=== PATIENT | male | born 1935 | race Caucasian/White ===

== ENCOUNTER → 2019-03-11 | Outpatient (CLI) | payer MEDICARE ==
[~2019-03-11] MED LIST: DOBUTamine DRIP for NUC MED 500 MG in DEXTROSE/WATER 1 250ML.BAG IV ONE; METOPROLOL TARTRATE 5 MG/5 ML VIAL IVP ONE
--- NOTE | 2019-03-12 12:24 | ECHOS ---
STRESS ECHOCARDIOGRAM DOBUTAMINE STRESS ECHOCARDIOGRAM DATE OF SERVICE: 03/11/2019 INDICATIONS: Chest pain. MEDICATIONS: Metoprolol, atorvastatin, warfarin. BASELINE HEART RATE: 98 BASELINE BLOOD PRESSURE: 146/88 MAXIMUM HEART RATE: 137 MAXIMUM BLOOD PRESSURE: 178/62 85% MPHR: 118 100% MPHR: 139 METS: MAXIMUM STAGE REACHED: TOTAL EXERCISE TIME: CLINICAL INFORMATION: STRESS DATA: Heart rate 98, pressure is 146/88 mmHg. Baseline EKG showed atrial fibrillation. Dobutamine infusion at a dose of 10 mcg/kg per minute, was initiated and increased to 20 mcg/kg per minute per protocol. Max heart rate was 137 which is about 98% of maximum predicted heart rate. Maximum pressure was 178/62 mmHg. Clinically the patient did not have any symptoms. The EKG did not show any significant ST or T-wave abnormalities concerning for ischemia or meeting criteria for ischemia. ECHOCARDIOGRAM IMAGES: On echocardiogram images from parasternal long axis view, parasternal short axis view, apical 4 chamber and apical 2 chamber views were obtained as the baseline images, at low dose dobutamine infusion, as well as on recovery and the echocardiogram images showed overall good augmentation in the left ventricular systolic function without any evidence of wall motion abnormalities concerning for ischemia. CONCLUSION: 1. Normal EKG in response to dobutamine. 2. Normal echocardiogram in response to dobutamine. 3. Essentially normal dobutamine stress echocardiogram for the patient. MMODL / IJN: [id number] /
== END | disposition home or self-care (01) ==
LOC: RADNMMAIN 09:00
PROVIDERS: ATTEND Internal Medicine
DX: R06.09 Other forms of dyspnea (principal)
CPT/HCPCS: 93351; J1250

== ENCOUNTER → 2020-05-05 | Outpatient (CLI) | payer MEDICARE ==
--- NOTE | 2020-05-05 18:53 | ECHOF ---
Referral Reason:I50.32 MEASUREMENTS -------- HEIGHT: 177.8 cm WEIGHT: 117.9 kg BP: RVIDd: 3.8 cm (< 3.3) IVSd: 1.4 cm (0.6 - 1.1) LVIDd: 5.2 cm (3.9 - 5.3) LVPWd: 1.3 cm (0.6 - 1.1) IVSs: 2.0 cm LVIDs: 2.9 cm LVPWs: 2.2 cm LAESV Index (A-L): 65.44 ml/m Ao Diam: 3.4 cm (2.0 - 3.7) AV Cusp: 2.4 cm (1.5 - 2.6) LA Diam: 4.8 cm (2.7 - 3.8) MV EXCURSION: 22.646 mm (> 18.000) MV EF SLOPE: 153 mm/s (70 - 150) EPSS: 1.1 cm AR PHT: 335 ms RAP: 5.00 mmHg RVSP: 40.56 mmHg FINDINGS -------- Atrial fibrillation. This was a technically good study. The left ventricular size is normal. There is moderate concentric left ventricular hypertrophy. O verall left ventricular systolic function is normal with, an EF between 55 - 60 %. The right ventricle is mild to moderately enlarged. LA is severely dilated >40 ml/m2 The right atrial size is normal. Interatrial and interventricular septum intact. Aortic valve is trileaflet and is mildly thickened. There is mild aortic regurgitation. The mitral valve is normal. The mitral valve leaflets are mildly thickened. Gxml-dv-thhijekj mitr al regurgitation is present. Mild tricuspid regurgitation present. There is mild pulmonary hypertension. The right ventricular systolic pressure, as measured by Doppler, is 40.56mmHg. There is no pulmonic regurgitation present. The aortic root size is normal. Normal inferior vena cava with normal inspiratory collapse consistent with estimated right atrial pre ssure of 5 mmHg. There is no pericardial effusion. CONCLUSIONS -------- 1. The left ventricular size is normal. 2. There is moderate concentric left ventricular hypertrophy. 3. The right ventricle is mild to moderately enlarged. 4. LA is severely dilated >40 ml/m2 5. Aortic valve is trileaflet and is mildly thickened. 6. There is mild aortic regurgitation. 7. The mitral valve leaflets are mildly thickened. 8. Rjjo-qa-euztdrbp mitral regurgitation is present. 9. There is mild pulmonary hypertension. 10. The right ventricular systolic pressure, as measured by Doppler, is 40.56mmHg. 11. There is no pericardial effusion. SUPER[employer]ENDENT [employer]: Sonya Drew RDCS
== END | disposition home or self-care (01) ==
LOC: RADECHMAIN 13:59
PROVIDERS: ATTEND Internal Medicine
DX: I27.20 Pulmonary hypertension, unspecified (principal); I34.0 Nonrheumatic mitral (valve) insufficiency; I50.32 Chronic diastolic (congestive) heart failure
CPT/HCPCS: 93306

== ENCOUNTER → 2020-07-13 | Outpatient (CLI) | payer MEDICARE ==
--- NOTE | 2020-07-13 14:38 | CT ---
EXAMINATION TYPE: CT chest w con DATE OF EXAM: 07/13/2020 COMPARISON: Chest x-ray 9 days ago HISTORY: Dyspnea on exertion. CT DLP: 517.8 mGycm. Automated Exposure Control for Dose Reduction was Utilized. TECHNIQUE: CT scan of the thorax is performed following with IV Contrast, patient injected with 80 m L of Isovue M300. FINDINGS: LUNGS: Groundglass opacity with interlobular septal thickening right upper lobe extends inferiorly. A dditional areas of groundglass opacity and reticulation in the superior aspect right lower lobe are p resent. Left lung is clear. There is no pleural effusion or pneumothorax seen. The tracheobronchia l tree is patent. MEDIASTINUM: There are some prominent but predominantly subcentimeter thoracic lymph nodes. A few sli ghtly enlarged lymph nodes for reference right peritracheal lymph node measures 1.2 x 1.1 cm axial im age 19. Several also slightly enlarged lymph nodes are present.. No pericardial effusion is seen. Ca rdiomegaly is redemonstrated. Moderate to severe three-vessel coronary artery calcification is seen. Moderate to severe biatrial dilatation is present OTHER: Hiibt-vo-nzilondv size hiatal hernia. Simple appearing 1.5 cm exophytic cyst posteriorly upper pole right kidney. Few scattered splenules. Multilevel spurring in the spine. IMPRESSION: Acute on chronic multifocal right lung infectious process felt present. Correlate clinica lly. Correlation with old outside CT or x-ray would be beneficial. Nonspecific slightly enlarged thor acic lymph nodes may warrant follow-up.
== END | disposition home or self-care (01) ==
LOC: RADCTMAIN 13:09
PROVIDERS: ATTEND Internal Medicine Critical Care Medicine
DX: J98.4 Other disorders of lung (principal); R59.0 Localized enlarged lymph nodes
CPT/HCPCS: 82565; 84520; 71260; 36415; Q9967

== ENCOUNTER → 2021-01-24 | Outpatient (CLI) | payer MEDICARE ==
--- NOTE | 2021-01-24 15:44 | CT ---
EXAMINATION TYPE: CT chest w con DATE OF EXAM: 01/24/2021 COMPARISON: 07/13/2020 HISTORY: Dyspnea. CT DLP: 545.2 mGycm Automated exposure control for dose reduction was used. CONTRAST: CT scan of the chest is performed with IV Contrast, patient injected with 100ml mL of Isovue 300. FINDINGS: LUNGS: The lungs are grossly clear, there is no concerning parenchymal mass or nodule identified. T here is no pleural effusion or pneumothorax seen. The tracheobronchial tree is patent. MEDIASTINUM: There are no greater than 1 cm hilar or mediastinal lymph nodes. No pericardial effusi on is seen. Thoracic aorta is of normal caliber. The heart is enlarged. Small hiatal hernia noted. UPPER ABDOMEN: No significant abnormality appreciated. OTHER: No additional significant abnormality is seen. IMPRESSION: No significant abnormality to account for the patient's symptoms.
== END | disposition home or self-care (01) ==
LOC: RADCTMAIN 15:12
PROVIDERS: ATTEND Internal Medicine Critical Care Medicine
DX: R06.00 Dyspnea, unspecified (principal)
CPT/HCPCS: 71260; Q9967

== ENCOUNTER → 2021-12-07 | Outpatient (CLI) | payer MEDICARE ==
--- NOTE | 2021-12-07 13:20 | CT ---
EXAMINATION TYPE: CT angio chest DATE OF EXAM: 12/07/2021 COMPARISON: 01/24/2021 HISTORY: 86-year-old male Elevated d-dimer, Shortness of breath TECHNIQUE: Contiguous axial scanning of the chest performed with IV Contrast, patient injected with 1 00, wasted 15 mL of Isovue 370. Coronal/sagittal MIP reconstructions performed. CT DLP: 635.2 mGycm Automated exposure control for dose reduction was used. FINDINGS: The heart is mildly enlarged without pericardial effusion. Scattered LAD coronary artery calcificatio ns are present. No flattening of the interventricular septum or reflux of contrast into the hepatic v eins. There is mild enlargement of the right side of the heart. Mild aneurysm aortic root at 4.2 cm an ectatic ascending aorta at 3.9 cm. Ectatic upper descending th oracic aorta 3.5 cm. Mild arthroscopic arch calcifications. Lower descending thoracic aorta ectatic a t 2.9 cm. A couple mildly enlarged mediastinal lymph nodes particularly in the lower paratracheal region measur ing up to 1.3 cm, unchanged. Large caliber to the main right and left pulmonary arteries measuring up to 3.2 cm suggesting underly ing pulmonary hypertension. Satisfactory opacification of the pulmonary artery system without evidenc e for pulmonary embolus. Subpleural reticular changes especially in the mid and lower lungs. Some associated mild bibasilar br onchiolectasis. A couple scattered benign calcified granulomas are noted. Additional mild emphysemato us change. No honeycombing or dominant groundglass changes. Small to moderate-sized hiatal hernia. A couple hilar splenules. Stable exophytic hypodense lesion me asuring 1.7 cm posterior right kidney suggesting a cyst. Bones: [facility] throughout the mid and lower thoracic spine. IMPRESSION: 1. NO EVIDENCE FOR PULMONARY EMBOLUS. 2. HOWEVER, THERE IS MILD CARDIOMEGALY, LAD CORONARY ARTERY CALCIFICATIONS, AND PULMONARY ARTERY HYPE RTENSION. CORRELATE FOR ELEVATED LEFT HEART PRESSURES. 3. 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 SOME ASSOCIATED MILD BIBAS ILAR ATELECTASIS. 4. 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 5. SMALL TO MODERATE SIZED HIATAL HERNIA. 6. DISH MID TO LOWER THORACIC SPINE.
== END | disposition home or self-care (01) ==
LOC: RADCTMAIN 09:23
PROVIDERS: ATTEND Internal Medicine
DX: I25.10 Atherosclerotic heart disease of native coronary artery without angina pectoris (principal); I27.21 Secondary pulmonary arterial hypertension; J43.9 Emphysema, unspecified; J84.10 Pulmonary fibrosis, unspecified; J98.11 Atelectasis; K44.9 Diaphragmatic hernia without obstruction or gangrene; I71.2 Thoracic aortic aneurysm, without rupture; M48.14 Ankylosing hyperostosis [Forestier], thoracic region
CPT/HCPCS: 82565; 84520; 71275; 36415; Q9967

== ENCOUNTER → 2021-12-14 | Outpatient (CLI) | payer MEDICARE ==
--- NOTE | 2021-12-14 11:03 | US ---
EXAMINATION TYPE: US carotid duplex BILAT DATE OF EXAM: 12/14/2021 COMPARISON: NONE CLINICAL HISTORY: 86-year-old male I65.23 CAROTID STENOSIS. Stenosis per order. Prior smoker per chago ent. TECHNIQUE: Carotid duplex ultrasound examination. Indirect upper criteria was utilized. FINDINGS: EXAM MEASUREMENTS: RIGHT: Peak Systolic Velocity (PSV) cm/sec ----- Right CCA: 66.2 ----- Right ICA: 55.9 ----- Right ECA: 55.9 ICA/CCA ratio: 0.84 RIGHT: End Diastole cm/sec ----- Right CCA: 10.3 ----- Right ICA: 15.4 ----- Right ECA: 0.0 LEFT: Peak Systolic Velocity (PSV) cm/sec ----- Left CCA: 67.7 ----- Left ICA: 63.7 ----- Left ECA: 65.9 ICA/CCA ratio: 0.94 LEFT: End Diastole cm/sec ----- Left CCA: 11.3 ----- Left ICA: 14.2 ----- Left ECA: 7.6 VERTEBRALS (direction of flow): Right Vertebral: Antegrade Left Vertebral: Antegrade Rhythm: Arrhythmia Electrical Equipment Technician: No elevated velocities at this time. Minimal plaque seen within bilateral bulbs. IMPRESSION: No hemodynamically significant internal carotid artery stenosis on either side. Criteria for Assigning % of Stenosis / Diameter reduction (Estimation based on the indirect measurements of the internal carotid artery velocities (ICA PSV). 1. Normal (no stenosis)=ICA PSV < 125 cm/s: ratio < 2.0: ICA EDV<40 cm/s. 2. Less than 50% stenosis=ICA PSV < 125 cm/s: ratio < 2.0: ICA EDV<40 cm/s. 3. 50 to 69% stenosis=ICA PSV of 125 to 230 cm/s: ration 2.0 ? 4.0: ICA EDV 40-100 cm/s. 4. Greater than 70% stenosis to near occlusion= ICA PSV > 230 cm/s: ratio > 4.0: ICA EDV > 100 cm/s. 5. Near occlusion= ICA PSV velocities may be low or undetectable: variable ratio and ICA EDV. 6. Total occlusion=unable to detect flow.
--- NOTE | 2021-12-15 14:43 | CA ---
Transthoracic Echo Report Name: Shahid Gee Age: 86 Gender: M : 1935 Exam Date: 12/14/2021 08:37 Exam Location: [place] [facility] Ht (in): 72 Wt (lb): 250 Ordering Physician: Parisa Rincon MD Attending/Referring Phys: Parisa Rincon MD Supervisor [employer] Kate Arnold RDCS Procedure CPT: Indications: I20.8 effort anfina Cardiac Hx: Technical Quality: Fair Contrast 1: Total Dose (mL): Contrast 2: Total Dose (mL): MEASUREMENTS (Male / Female) Normal Values 2D ECHO LV Diastolic Diameter PLAX 5.4 cm 4.2 - 5.9 / 3.9 - 5.3 cm LV Systolic Diameter PLAX 4.0 cm IVS Diastolic Thickness 1.3 cm 0.6 - 1.0 / 0.6 - 0.9 cm LVPW Diastolic Thickness 1.3 cm 0.6 - 1.0 / 0.6 - 0.9 cm LV Relative Wall Thickness 0.5 RV Internal Dim ED PLAX 5.4 cm LA Volume 201.1 cm??? 18 - 58 / 22 - 52 cm??? M-MODE LV Diastolic Diameter MM 5.9 cm 4.2 - 5.9 / 3.9 - 5.3 cm LV Systolic Diameter MM 4.4 cm LV Cardiac Index MM Teich 2159.2 cm???/min???m??? IVS Diastolic Thickness MM 1.5 cm 0.6 - 1.0 / 0.6 - 0.9 cm LVPW Diastolic Thickness MM 1.4 cm 0.6 - 1.0 / 0.6 - 0.9 cm LV Relative Wall Thickness MM 0.5 0.24 - 0.42 / 0.22 - 0.42 LV Mass Index MM 160.5 g/m??? 49 - 115 / 43 - 95 g/m??? Aortic Root Diameter MM 3.9 cm LA Systolic Diameter MM 4.0 cm LA Ao Ratio MM 1.0 AV Cusp Separation MM 2.3 cm DOPPLER AV Peak Velocity 82.1 cm/s AV Peak Gradient 2.7 mmHg LVOT Peak Velocity 74.9 cm/s LVOT Peak Gradient 2.2 mmHg TR Peak Velocity 270.9 cm/s TR Peak Gradient 29.3 mmHg Right Ventricular Systolic Press 34.3 mmHg FINDINGS Left Ventricle Mildly increased left ventricular wall thickness. Mild left ventricular dilatation. Reduced global left ventricular systolic function. Left ventricular ejection fraction is estimated at 45-50%. Abnormal left ventricular diastolic filling pattern. Right Ventricle Moderate right ventricular dilatation. Right Atrium Moderate right atrial dilatation. Left Atrium Severely increased left atrial volume. Severely increased left atrial area. No evidence for an atrial septal defect. Mitral Valve Mitral annular calcification. Mitral valve thickened. Bokmyrkk-sf-lucvsy mitral regurgitation. Aortic Valve Trileaflet aortic valve. Trileaflet aortic valve. Aortic valve sclerosis. No aortic stenosis. Tricuspid Valve Structurally normal tricuspid valve. Mild tricuspid regurgitation. Pulmonic Valve Structurally normal pulmonic valve. Trace pulmonic regurgitation. Pericardium No pericardial effusion. Aorta Aortic root and proximal ascending aorta not well visualized. CONCLUSIONS Mild LV systolic dysfunction. Inferoseptal hypokinesis. Right ventricular diameter dictation. Biatrial enlargement. Moderate to severe mitral regurgitation. Previewed by: Dr. Ricky Jimenez MD (Electronically Signed) Final Date: 15 December 2021 14:42
== END | disposition home or self-care (01) ==
LOC: RADECHMAIN 08:21
PROVIDERS: ATTEND Internal Medicine
DX: I65.23 Occlusion and stenosis of bilateral carotid arteries (principal); I20.8 Other forms of angina pectoris
CPT/HCPCS: 93306; 93880

== ENCOUNTER → 2021-12-26 | Outpatient (CLI) | payer MEDICARE ==
[~2021-12-26] MED LIST changes: -DOBUTamine DRIP for NUC MED 500 MG in DEXTROSE/WATER 1 250ML.BAG IV ONE; -METOPROLOL TARTRATE 5 MG/5 ML VIAL IVP ONE; +REGADENOSON 0.4 MG/5 ML SYRINGE IV ONE
--- NOTE | 2021-12-26 12:21 | CA ---
Lexiscan Nuclear Stress Test Report Name: Shahid Gee Exam Date: 12/26/2021 09:57 Exam Location: [place] [facility] Ht (in): 72 Wt (lb): 250 BSA: 2.34 Ordering Phys: Parisa Rincon MD Referring Phys: SONIA, Technologist: Marcelino Gusman Age: 86 Gender: M : 1935 Procedure CPT: Indications: I20.8 effort angina ICD-10 Codes: Patient History: Chest pain on exertion Medications: Metorprolol, atorvastatin, warfarin, furosamide, lisinopril, spironolatone. Meds past 24 hrs: Pretest Chest Pain: STRESS TEST Lexiscan Protocol Exercise Duration (min:sec): 01:[address] Depressions (mm): Angina Score: Fields Score: Resting HR (bpm): 82 Peak HR (bpm): 92 Resting BP (mmHg): 136 / 82 Peak BP (mmHg): 128 / 73 MPHR: 136 Target HR: 116 % MPHR: 68 METS: 1.0 Total Dose: Peak Dose: Atropine: Double Product: 18536 BP Response: Stress Termination: INFUSION COMPLETE Stress Symptoms: NO SYMPTOMS Stress Summary: ECG ANALYSIS Resting ECG: Atrial fibrillation with nonspecific ST-T wave changes Stress ECG: Normal response to Lexiscan CONCLUSIONS Negative stress test by EKG criteria Cardiolite portion of the stress test will be reported separately Dr. Ricky Jimenez MD (Electronically Signed) Final Date: 26 December 2021 12:20
--- NOTE | 2021-12-26 22:45 | NM ---
EXAMINATION TYPE: NM stress lexiscan cardiolite DATE OF EXAM: 12/26/2021 COMPARISON: CT chest from 04/18/2022 HISTORY: Palpitations and angina with difficulty in breathing. Family history of heart attack. Person al history of tobacco use. TECHNIQUE: After the intravenous administration of 9.8 mCi Tc 99m Sestamibi - Cardiolite resting SPE CT images acquired 50 minutes post injection. The patient received 0.4mg Lexiscan, 25.9 mCi Tc 99m Sestamibi - Stress images obtained [address] injection FINDINGS: Review of stress and rest SPECT images demonstrates no distinct perfusion abnormality. Gated analysi s shows normal wall motion with an estimated left ventricular ejection fraction of 57 %. IMPRESSION: No scintigraphic evidence for reversible ischemia.
== END | disposition home or self-care (01) ==
LOC: RADXRMAIN 08:11
PROVIDERS: ATTEND Internal Medicine
DX: I20.8 Other forms of angina pectoris (principal)
CPT/HCPCS: 93017; 78452; A9500

== ENCOUNTER 2022-12-31 12:24 | Emergency (ER) | payer MEDICARE ==
--- NOTE | 2022-12-31 13:12 | ED ---
Lower Extremity Injury HPI - General Chief Complaint: Extremity Injury, Lower Stated Complaint: Left leg pain Time Seen by Provider: 12/31/22 12:45 Source: patient, RN notes reviewed Mode of arrival: ambulatory Limitations: no limitations - History of Present Illness Initial Comments: This is a 87-year-old male presents emergency Department chief complaint left calf, left leg pain. Patient states that he had a fall a few days ago seen by had negative x-rays scheduled for an MRI of his left hip. He states he started developing left leg pain and swelling. Patient's daughter is concerned about possible clot. Patient is on Coumadin states that he gets it checked very regularly. Patient denies any excessive bleeding. - Related Data Previous Rx's Medication Instructions Recorded Cephalexin [Keflex] 500 mg PO Q6HR #28 cap 12/31/22 Allergies Allergy/AdvReac Type Severity Reaction Status Date / Time Penicillins Allergy Unknown Verified 12/31/22 12:32 Childhood Review of Systems ROS Statement: Those systems with pertinent positive or pertinent negative responses have been documented in the HPI. ROS Other: All systems not noted in ROS Statement are negative. Past Medical History Past Medical History: Atrial Fibrillation, Heart Failure, Hyperlipidemia, Hypertension Additional Past Medical History / Comment(s): trigeminal neuralgia History of Any Multi-Drug Resistant Organisms: None Reported Past Surgical History: Joint Replacement Additional Past Surgical History / Comment(s): trigeminal neuralgia Past Psychological History: No Psychological Hx Reported Smoking Status: Former smoker Past Alcohol Use History: Daily Past Drug Use History: None Reported General Exam Limitations: no limitations General appearance: alert, in no apparent distress Head exam: Present: atraumatic, normocephalic, normal inspection Eye exam: Present: normal appearance, PERRL, EOMI. Absent: scleral icterus, conjunctival injection, periorbital swelling Neck exam: Present: normal inspection, full ROM. Absent: tenderness, meningismus, lymphadenopathy Respiratory exam: Present: normal lung sounds bilaterally. Absent: respiratory distress, wheezes, rales, rhonchi, stridor Cardiovascular Exam: Present: regular rate, normal rhythm, normal heart sounds. Absent: systolic murmur, diastolic murmur, rubs, gallop, clicks GI/Abdominal exam: Present: soft, normal bowel sounds. Absent: distended, tenderness, guarding, rebound, rigid Extremities exam: Present: other (Left tib-fib region there is moderate swelling, tenderness with palpation and mild erythema minimal increase in warmth pulses are equal bilaterally) Course Vital Signs 12/31/22 12/31/22 12/31/22 12:33 14:23 15:35 Temperature 98.4 F 98.6 F 98.8 F Pulse Rate 94 79 86 Respiratory 16 18 16 Rate Blood Pressure 117/63 129/72 122/76 O2 Sat by Pulse 95 99 99 Oximetry Medical Decision Making - Medical Decision Making Was pt. sent in by a medical professional or institution (HARRIETT Manuel, MANAGED CARE LIAISON, urgent care, hospital, or shelter...) When possible be specific @ -No Did you speak to anyone other than the patient for history (EMS, parent, family, police, friend...)? What history was obtained from this source @ -No Did you review nursing and triage notes (agree or disagree)? Why? @ -I reviewed and agree with nursing and triage notes Were old charts reviewed (outside hosp., previous admission, EMS record, old EKG, old radiological studies, urgent care reports/EKG's, shelter records)? Report findings @ -No old charts were reviewed Differential Diagnosis (chest pain, altered mental status, abdominal pain women, abdominal pain men, vaginal bleeding, weakness, fever, dyspnea, syncope, headache, dizziness, GI bleed, back pain, seizure, CVA, palpatations, mental health, musculoskeletal)? @ -Cellulitis, DVT, leg contusion, hematoma EKG interpreted by me (3pts min.). @ -None X-rays interpreted by me (1pt min.). @ -X-ray tib-fib shows soft tissue swelling CT interpreted by me (1pt min.). @ -None done U/S interpreted by me (1pt. min.). @ -Ultrasound is negative for acute DVT What testing was considered but not performed or refused? (CT, X-rays, U/S, labs)? Why? @ -None What meds were considered but not given or refused? Why? @ -None Did you discuss the management of the patient with other professionals (professionals i.e. HARRIETT Manuel, MANAGED CARE LIAISON, lab, RT, psych nurse, director social, it coordinator, teacher, budget officer, outpatient case manager)? Give summary @ -No Was smoking cessation discussed for >3mins.? @ -No Was critical care preformed (if so, how long)? @ -No Were there social determinants of health that impacted care today? How? (Homelessness, low income, unemployed, alcoholism, drug addiction, transportation, low edu. Level, literacy, decrease access to med. care, nursing home, rehab)? @ -No Was there de-escalation of care discussed even if they declined (Discuss DNR or withdrawal of care, Hospice)? DNR status @ -No What co-morbidities impacted this encounter? (DM, HTN, Smoking, COPD, CAD, Cancer, CVA, ARF, Chemo, Hep., AIDS, mental health diagnosis, sleep apnea, morbid obesity)? @ -None Was patient admitted / discharged? Hospital course, mention meds given and route, prescriptions, significant lab abnormalities, going to OR and other pertinent info. @ -Discharge patient has a leg contusion is no evidence DVT. Patient has no active bleeding no signs of bleeding. Patient has had mild erythema may relate to swelling though there is concerned about a lytic changes. Patient will be discharged on oral antibiotics with close follow-up return parameters were discussed. Family agree to plan. Undiagnosed new problem with uncertain prognosis? @ -No Drug Therapy requiring intensive monitoring for toxicity (Heparin, Nitro, Insulin, Cardizem)? @ -No Were any procedures done? @ -No Diagnosis/symptom? @ -Left leg hematoma, cellulitis Acute, or Chronic, or Acute on Chronic? @ -Acute Uncomplicated (without systemic symptoms) or Complicated (systemic symptoms)? @ -Uncomplicated Side effects of treatment? @ -No Exacerbation, Progression, or Severe Exacerbation? @ -No Poses a threat to life or bodily function? How? (Chest pain, USA, AR, pneumonia, PE, COPD, DKA, ARF, appy, cholecystitis, CVA, Diverticulitis, Homicidal, Suicid al, threat to staff... and all critical care pts) @ -No Disposition Clinical Impression: Contusion of left leg, Left leg cellulitis Disposition: HOME SELF-CARE Condition: Stable Instructions (If sedation given, give patient instructions): Cellulitis (ED) Additional Instructions: Please return to the Emergency Department if symptoms worsen or any other concerns. Prescriptions: Cephalexin [Keflex] 500 mg PO Q6HR #28 cap Is patient prescribed a controlled substance at d/c from ED?: No Referrals: Parisa Rincon MD [Primary Care Provider] - 1-2 days Time of Disposition: 14:57
--- NOTE | 2022-12-31 14:34 | XR ---
EXAMINATION TYPE: XR tibia fibula LT DATE OF EXAM: 12/31/2022 COMPARISON: None HISTORY: Pain swelling TECHNIQUE: 2 view left tibia and fibula FINDINGS: No acute fracture or dislocation. Some mild soft tissue swelling may be present. This is sl ightly greater along the lateral aspect lateral malleolus. Calcaneal heel spur is noted. Vascular tamika cification is evident. IMPRESSION: 1. No acute osseous abnormality left tibia and fibula. 2. Suggestion of mild soft tissue swelling at the left foreleg.
--- NOTE | 2022-12-31 14:35 | US ---
EXAMINATION TYPE: US venous doppler duplex LE LT DATE OF EXAM: 12/31/2022 1:12 PM COMPARISON: NONE CLINICAL INDICATION: Male, 87 years old with history of pain; left lower leg redness and swelling. P atient fell last week. On warfarin. SIDE PERFORMED: Left TECHNIQUE: The lower extremity deep venous system is examined utilizing real time linear array sonog freddy with graded compression, doppler sonography and color-flow sonography. VESSELS IMAGED: Common Femoral Vein Deep Femoral Vein Greater Saphenous Vein * Femoral Vein Popliteal Vein Small Saphenous Vein * Proximal Calf Veins (* superficial vessels) Left Leg: Negative for DVT IMPRESSION: 1. Left lower extremity venous ultrasound negative for deep venous thrombosis
[2022-12-31] MEDS ORDERED: CEPHALEXIN 500MG STARTER PACK 4 CAP BTL PO STA (14:56)
[2022-12-31 15:37] VITALS: BP 122/76; PULSE 86; RESP 16; TEMP 98.8
== END 2022-12-31 15:39 | disposition home or self-care (01) ==
LOC: EC 12:24
DX: S80.12XA Contusion of left lower leg, initial encounter (principal); I11.0 Hypertensive heart disease with heart failure; I48.91 Unspecified atrial fibrillation; I50.9 Heart failure, unspecified; Z87.891 Personal history of nicotine dependence; Z88.0 Allergy status to penicillin; W18.30XA Fall on same level, unspecified, initial encounter
CPT/HCPCS: 99284

== ENCOUNTER 2023-04-27 21:48 | Emergency (ER) | payer MEDICARE ==
[2023-04-27 22:58] VITALS: RESP 18
[2023-04-27] MEDS ORDERED: CEPHALEXIN 500 MG CAP PO STA (22:58)
[2023-04-27] MEDS ORDERED: CEPHALEXIN 500MG STARTER PACK 4 CAP BTL PO STA (22:58)
--- NOTE | 2023-04-27 23:01 | ED ---
Fall HPI - General Chief Complaint: Fall Stated Complaint: Fall,arm injury Time Seen by Provider: 04/27/23 22:35 Source: patient, RN notes reviewed, old records reviewed Mode of arrival: ambulatory Limitations: no limitations - History of Present Illness Initial Comments: This is a 87-year-old male to the emergency department for evaluation today. Patient presents today for evaluation of arm injury patient had a fall with a significant skin tear to the arm. No other injuries noted patient has no pain just concerned over size of skin tear. 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, by family Place Fall Occurred: home Loss of Consciousness: none Prolonged Down Time?: no Symptoms Prior to Fall: none Severity: moderate Severity scale (1-10): 4 Context: tripped/slipped Associated Symptoms: denies - Related Data Previous Rx's Medication Instructions Recorded Cephalexin [Keflex] 500 mg PO Q6HR #28 cap 12/31/22 Cephalexin [Keflex] 500 mg PO Q6HR #28 cap 04/27/23 Allergies Allergy/AdvReac Type Severity Reaction Status Date / Time Penicillins Allergy Unknown Verified 04/27/23 22:23 Childhood Review of Systems ROS Statement: Those systems with pertinent positive or pertinent negative responses have been documented in the HPI. ROS Other: All systems not noted in ROS Statement are negative. Past Medical History Past Medical History: Atrial Fibrillation, Heart Failure, Hyperlipidemia, Hypertension Additional Past Medical History / Comment(s): trigeminal neuralgia History of Any Multi-Drug Resistant Organisms: None Reported Past Surgical History: Joint Replacement, Orthopedic Surgery Additional Past Surgical History / Comment(s): trigeminal neuralgia Past Psychological History: No Psychological Hx Reported Smoking Status: Former smoker Past Alcohol Use History: Daily Past Drug Use History: None Reported General Exam General appearance: alert, in no apparent distress Head exam: Present: atraumatic, normocephalic, normal inspection Eye exam: Present: normal appearance, PERRL, EOMI. Absent: scleral icterus, conjunctival injection, periorbital swelling ENT exam: Present: normal exam, mucous membranes moist Neck exam: Present: normal inspection. Absent: tenderness, meningismus, lymphadenopathy Respiratory exam: Present: normal lung sounds bilaterally. Absent: respiratory distress, wheezes, rales, rhonchi, stridor Cardiovascular Exam: Present: regular rate, normal rhythm, normal heart sounds. Absent: systolic murmur, diastolic murmur, rubs, gallop, clicks GI/Abdominal exam: Present: soft, normal bowel sounds. Absent: distended, tenderness, guarding, rebound, rigid Extremities exam: Present: normal inspection, full ROM, normal capillary refill. Absent: tenderness, pedal edema, joint swelling, calf tenderness Back exam: Present: normal inspection Neurological exam: Present: alert, oriented X3, CN II-XII intact Psychiatric exam: Present: normal affect, normal mood Skin exam: Present: warm, dry, intact, normal color. Absent: rash Course Vital Signs 04/27/23 04/27/23 22:16 23:18 Temperature 98.7 F 97.8 F Pulse Rate 68 67 Respiratory 18 18 Rate Blood Pressure 101/65 112/69 O2 Sat by Pulse 94 L 96 Oximetry - Reevaluation(s) Reevaluation #1: 04/27/23 23:03 Medical record is reviewed Reevaluation #2: Patient symptoms are improved Reevaluation #3: Patient informed of results and questions answered Reevaluation #4: 04/27/23 23:03 Was pt. sent in by a medical professional or institution (, PA, [employer]ER, urgent care, hospital, or group home...) When possible be specific @ -no Did you speak to anyone other than the patient for history (EMS, parent, family, police, friend...)? What history was obtained from this source @ -no Did you review nursing and triage notes (agree or disagree)? Why? @ -agree Are old charts reviewed (outside hosp., previous admission, EMS record, old EKG, old radiological studies, urgent care reports/EKG's, group home records)? Report findings @ -yes Differential Diagnosis (chest pain, altered mental status, abdominal pain women, abdominal pain men, vaginal bleeding, weakness, fever, dyspnea, syncope, headache, dizziness, GI bleed, back pain, seizure, CVA, palpatations, mental health, musculoskeletal)? @ -prior EKG interpreted by me (3pts min.). @ -no X-rays interpreted by me (1pt min.). @ -no CT interpreted by me (1pt min.). @ -no U/S interpreted by me (1pt. min.). @ -no What testing was considered but not performed or refused? (CT, X-rays, U/S, labs)? Why? @ -none What meds were considered but not given or refused? Why? @ -none Did you discuss the management of the patient with other professionals (professionals i.e. , PA, [employer] TE[employer]ER, lab, RT, psych nurse, social studies teacher, ready to wear department manager, teacher, contact officer, social work case manager)? Give summary @ -no Was smoking cessation discussed for >3mins.? @ -no Was critical care preformed (if so, how long)? @ -no Were there social determinants of health that impacted care today? How? (Homelessness, low income, unemployed, alcoholism, drug addiction, transportation, low edu. Level, literacy, decrease access to med. care, usp, rehab)? @ -none Was there de-escalation of care discussed even if they declined (Discuss DNR or withdrawal of care, Hospice)? DNR status @ -no What co-morbidities impacted this encounter? (DM, HTN, Smoking, COPD, CAD, Cancer, CVA, ARF, Chemo, Hep., AIDS, mental health diagnosis, sleep apnea, morbid obesity)? @ -none Was patient admitted / discharged? Hospital course, mention meds given and route, prescriptions, significant lab abnormalities, going to OR and other pertinent info. @ - 87 male to the emergency department status post fall as well as a fall with skin tear. Patient is skin tear repaired here in the urine can be discharged home Undiagnosed new problem with uncertain prognosis? @ -no Drug Therapy requiring intensive monitoring for toxicity (Heparin, Nitro, Insulin, Cardizem)? @ -no Were any procedures done? @ -no Diagnosis/symptom? @ -Skin tear on arm after fall Acute, or Chronic, or Acute on Chronic? @ -Acute Uncomplicated (without systemic symptoms) or Complicated (systemic symptoms)? @ -Complicated Side effects of treatment? @ -no Exacerbation, Progression, or Severe Exacerbation? @ -exacerbation Poses a threat to life or bodily function? How? (Chest pain, USA, PA, pneumonia, PE, COPD, DKA, ARF, appy, cholecystitis, CVA, Diverticulitis, Homicidal, Suicidal, threat to staff... and all critical care pts) @ -no Medical Decision Making - Medical Decision Making 87 male to the emergency department for evaluation of skin tear after fall. Tear is repaired here in the ER after being cleaned. Patient's in no distress and can be discharged home Disposition Clinical Impression: Fall, Skin tear of left forearm without complication Disposition: HOME SELF-CARE Condition: Fair Instructions (If sedation given, give patient instructions): Skin Tear (ED) Prescriptions: Cephalexin [Keflex] 500 mg PO Q6HR #28 cap Is patient prescribed a controlled substance at d/c from ED?: No Referrals: Parisa Rincon MD [Primary Care Provider] - 1-2 days Time of Disposition: 23:00
[2023-04-27 23:37] VITALS: BP 112/69; PULSE 67; TEMP 97.8
== END 2023-04-27 23:19 | disposition home or self-care (01) ==
LOC: EC 21:48
DX: S51.812A Laceration without foreign body of left forearm, initial encounter (principal); I50.9 Heart failure, unspecified; I11.0 Hypertensive heart disease with heart failure; I48.91 Unspecified atrial fibrillation; Z87.891 Personal history of nicotine dependence; Z88.0 Allergy status to penicillin; W01.0XXA Fall on same level from slipping, tripping and stumbling without subsequent striking against object, initial encounter; Y92.009 Unspecified place in unspecified non-institutional (private) residence as the place of occurrence of the external cause
CPT/HCPCS: 12001; 99284

== ENCOUNTER → 2023-08-26 | Outpatient (CLI) | payer MEDICARE ==
[2023-08-26 17:05] LABS: INR 1.06 sec (0.93-1.11); Prothrombin Time 11.4 sec (9.9-11.9)
== END | disposition home or self-care (01) ==
LOC: LABWHC1 09:43
PROVIDERS: ATTEND Physical Medicine & Rehabilitation
DX: M47.817 Spondylosis without myelopathy or radiculopathy, lumbosacral region (principal); M48.062 Spinal stenosis, lumbar region with neurogenic claudication; M51.26 Other intervertebral disc displacement, lumbar region; M43.12 Spondylolisthesis, cervical region; R20.2 Paresthesia of skin
CPT/HCPCS: 36415; 85610

== ENCOUNTER → 2023-10-01 | Outpatient (CLI) | payer MEDICARE ==
[2023-10-01 10:33] LABS: Basophils % (A) 1 %; Eosinophils % (A) 0 %; Lymphocytes # (A) 1.2 k/uL (1.0-4.8); Lymphocytes % (A) 18 %; MCH 31.2 pg (25.0-35.0); MCHC 31.8 g/dL (31.0-37.0); MCV 98.2 fL (80.0-100.0); Mean Platelet Volume 8.7; Monocytes # (A) 0.7 k/uL (0-1.0); Monocytes % (A) 10 %; Neutrophils # (A) 4.5 k/uL (1.3-7.7); Neutrophils % (A) 68 %; Platelet Count 217 k/uL (150-450); RBC 4.48 m/uL (4.30-5.90); RDW 14.1 % (11.5-15.5); WBC 6.6 k/uL (3.8-10.6)
[2023-10-01 10:50] LABS: Prothrombin Time 11.1 sec (10.0-12.5)
[2023-10-01 11:10] LABS: ALT 16 U/L (4-49); AST 23 U/L (17-59); African American GFR (CKD) 49 (>60 ml/min/1.73 sqM); Albumin 4.1 g/dL (3.5-5.0); Albumin/Globulin Ratio 1.5; Alkaline Phosphatase 85 U/L (38-126); Anion Gap 7 mmol/L; Blood Urea Nitrogen 27 mg/dL (9-20); Calcium 10.2 mg/dL (8.4-10.2); Carbon Dioxide 26 mmol/L (22-30); Chloride 104 mmol/L (98-107); Globulin 2.8 g/dL; Glucose 99 mg/dL (74-99); Non-African American GFR(CKD) 42 (>60 ml/min/1.73 sqM); Potassium 4.6 mmol/L (3.5-5.1); Sodium 137 mmol/L (137-145); Total Protein 6.9 g/dL (6.3-8.2)
[2023-10-01 15:44] LABS: Chol/HDL Ratio 2.53 Ratio; LDL Cholesterol,Calculated 86.1 mg/dL (0.0-131.0); Prostate Specific Antigen 0.57 ng/mL (0.000-6.500); VLDL Calculation 12.54 mg/dL (5.00-40.00)
== END | disposition home or self-care (01) ==
LOC: LABWHC1 10:08
PROVIDERS: ATTEND Physical Medicine & Rehabilitation
DX: Z00.00 Encounter for general adult medical examination without abnormal findings (principal); I10 Essential (primary) hypertension; I48.91 Unspecified atrial fibrillation; E78.2 Mixed hyperlipidemia; E55.9 Vitamin D deficiency, unspecified; M47.817 Spondylosis without myelopathy or radiculopathy, lumbosacral region; M48.062 Spinal stenosis, lumbar region with neurogenic claudication; M51.26 Other intervertebral disc displacement, lumbar region; M47.816 Spondylosis without myelopathy or radiculopathy, lumbar region; M43.12 Spondylolisthesis, cervical region; N40.0 Benign prostatic hyperplasia without lower urinary tract symptoms; R20.2 Paresthesia of skin; R73.09 Other abnormal glucose; Z79.01 Long term (current) use of anticoagulants
CPT/HCPCS: 36415; 80053; 80061; 82306; 83036; 84153; 84443; 85025; 85610

== ENCOUNTER → 2023-11-05 | Outpatient (CLI) | payer MEDICARE ==
[2023-11-05 16:16] LABS: INR 0.96 sec (0.93-1.11); Prothrombin Time 10.4 sec (9.9-11.9)
== END | disposition home or self-care (01) ==
LOC: LABWHC1 09:17
PROVIDERS: ATTEND Physical Medicine & Rehabilitation
DX: M47.817 Spondylosis without myelopathy or radiculopathy, lumbosacral region (principal); M48.062 Spinal stenosis, lumbar region with neurogenic claudication; M51.26 Other intervertebral disc displacement, lumbar region; M47.816 Spondylosis without myelopathy or radiculopathy, lumbar region; M43.12 Spondylolisthesis, cervical region; R20.2 Paresthesia of skin
CPT/HCPCS: 36415; 85610

== ENCOUNTER → 2023-12-18 | Outpatient (CLI) | payer MEDICARE ==
[2023-12-18 16:40] LABS: INR 0.98 sec (0.93-1.11); Prothrombin Time 10.6 sec (9.9-11.9)
== END | disposition home or self-care (01) ==
LOC: LABWHC1 08:20
PROVIDERS: ATTEND Physical Medicine & Rehabilitation
DX: M48.062 Spinal stenosis, lumbar region with neurogenic claudication (principal); M51.26 Other intervertebral disc displacement, lumbar region; M43.12 Spondylolisthesis, cervical region; M47.817 Spondylosis without myelopathy or radiculopathy, lumbosacral region; I48.91 Unspecified atrial fibrillation; G50.0 Trigeminal neuralgia; Z96.651 Presence of right artificial knee joint; R20.2 Paresthesia of skin; Z79.01 Long term (current) use of anticoagulants
CPT/HCPCS: 36415; 85610

== ENCOUNTER → 2024-06-10 | Outpatient (CLI) | payer MEDICARE ==
[2024-06-10 15:59] LABS: INR 1.02 sec (0.93-1.11); Prothrombin Time 11.4 sec (9.9-11.9)
== END | disposition home or self-care (01) ==
LOC: LABWHC1 10:53
PROVIDERS: ATTEND Anesthesiology
DX: Z01.812 Encounter for preprocedural laboratory examination (principal)
CPT/HCPCS: 36415; 85610